=== PATIENT | male | born 1955 | race Caucasian/White ===

== ENCOUNTER 2020-02-07 10:30 | Inpatient (IN) | payer BC ==
[~2020-02-07] VITALS: Ht 170.2 cm; Wt 95.9 kg
[2020-02-07] MEDS ORDERED: normal saline 1000ml 1,000 ML IV ONE (10:40)
[2020-02-07] MEDS ORDERED: aspirin 81mg tab.chew PO ONE (10:40)
[2020-02-07] MEDS ORDERED: diltiazem 5mg/ml 5ml inj. IV ONE (10:40)
[2020-02-07] MEDS ORDERED: magnesium 2GM in 50ml NS 50 ML IV ONE (10:40)
[2020-02-07] MEDS ORDERED: diltiazem-NS 100mg/100ml 100 ML IV SCH (10:45)
[2020-02-07 10:56] LABS: BASOPHILS % (AUTO) 0.3 % (0-1); EOSINOPHILS # (AUTO) 0.1 X10'3 (0-0.9); EOSINOPHILS % (AUTO) 1.2 % (0-6); LYMPHOCYTES # (AUTO) 1.6 X10'3 (1.1-4.8); LYMPHOCYTES % (AUTO) 14.9 % (21-51); MONOCYTES # (AUTO) 0.8 X10'3 (0-0.9); MONOCYTES % (AUTO) 7.5 % (2-12); NEUTROPHILS # (AUTO) 8.1 X10'3 (1.8-7.7); NEUTROPHILS % (AUTO) 76.1 % (42-75); PLATELET COUNT 266 X10'3 (140-440); WHITE BLOOD COUNT 10.6 X10'3 (4.5-11.0)
[2020-02-07 11:08] LABS: HEMATOCRIT 47.1 % (42.0-52.0); HEMOGLOBIN 16.6 g/dl (14.0-17.9); MEAN CORPUSCULAR HEMOGLOBIN 33.4 PG (27.0-31.0); MEAN CORPUSCULAR HGB CONC 35.3 g/dL (33.0-36.5); MEAN CORPUSCULAR VOLUME 94.8 FL (78-98); RED BLOOD COUNT 4.96 X10'6 (4.70-6.10); RED CELL DISTRIBUTION WIDTH 14.1 % (11.5-14.5)
[2020-02-07 11:13] LABS: ALANINE AMINOTRANSFERASE 38 U/L (12-78); ALBUMIN 4.3 G/DL (3.4-5.0); ALBUMIN/GLOBULIN RATIO 1.1 (1.1-1.5); ALKALINE PHOSPHATASE 101 IU/L (46-116); ANION GAP 4 (8-16); ASPARTATE AMINO TRANSFERASE 26 U/L (10-37); BILIRUBIN,TOTAL 0.9 MG/DL (0.1-1.0); BLOOD UREA NITROGEN 18 MG/DL (7-18); BUN/CREATININE RATIO 16.8 (5.4-32.0); CALCIUM 9.4 MG/DL (8.5-10.1); CHLORIDE 95 MMOL/L (99-107); CREATININE 1.07 MG/DL (0.60-1.10); GLUCOSE 119 MG/DL (70-104); POTASSIUM 4.6 MMOL/L (3.5-5.1); SODIUM 129 MMOL/L (135-145); TOTAL CARBON DIOXIDE 29.6 MMOL/L (24-32); TOTAL PROTEIN 8.2 G/DL (6.4-8.2); eGFR 70 ML/MIN
[2020-02-07 11:19] LABS: MAGNESIUM 2.1 MG/DL (1.5-2.4)
[2020-02-07] MEDS ORDERED: LISI-600 PO (11:36)
[2020-02-07] MEDS ORDERED: ATOR80TA PO (11:36)
[2020-02-07] MEDS ORDERED: ASPI-1264 PO (11:36)
[2020-02-07] MEDS ORDERED: TRIA1CAP6 PO (11:36)
[2020-02-07 12:47] LABS: CLARITY,URINE CLEAR (Clear); COLOR,URINE STRAW (Yellow); GLUCOSE, URINE NEGATIVE (Neg); KETONES,URINE NEGATIVE (Neg); LEUKOCYTE ESTERASE ,URINE NEGATIVE (Neg); NITRITES, URINE NEGATIVE (Neg); OCCULT BLOOD,URINE NEGATIVE (Neg); PROTEIN,URINE NEGATIVE (Neg); UROBILINOGEN,URINE 0.2 E.U/dL (0.2-1.0)
[2020-02-07 12:49] LABS: UA COLLECTION TYPE CLN CATCH MIDSTREAM
--- NOTE | 2020-02-07 13:03 | NUR ---
Patient in room ER 7. I have received report from DHAVAL Okeefe and had the opportunity to ask questions and assume patient care.
[2020-02-07] MEDS ORDERED: mag hydrox/Alum hydrox/simeth 30ml oral suspension PO PRN (13:05)
[2020-02-07] MEDS ORDERED: HYDROcodone/acetaminophen 5mg/325mg tablet PO PRN (13:05)
[2020-02-07] MEDS ORDERED: magnesium hydroxide 30ml (MOM) UD suspension PO PRN (13:05)
[2020-02-07] MEDS ORDERED: ondansetron/PF 4mg/2ml inj IV PRN (13:05)
[2020-02-07] MEDS ORDERED: morphine 2 MG/ML inj. syringe IV PRN ×2 (13:05)
[2020-02-07] MEDS ORDERED: acetaminophen 325mg tablet PO PRN ×2 (13:05)
[2020-02-07] MEDS ORDERED: KEN0.1O TOP (13:06)
--- NOTE | 2020-02-07 13:10 | NUR ---
SPOKE WITH DR. CHA,RECEIVED AN ORDER FOR CARDIZEM 30MG Q6 HOURS PO THEN STOP CARDIZEM DRIP AFTER 30 MINUES,ELIQUIZ 5MG BID DOSE NOW.
[2020-02-07] MEDS ORDERED: diltiazem 30mg tablet PO SCH ×3 (13:16→20:00)
[2020-02-07] MEDS: apixaban 2.5mg tablet PO SCH ×2 (13:20→21:46)
--- NOTE | 2020-02-07 13:45 | NUR ---
Pt arrived to unit stable by DHAVAL Okeefe. Oriented to room and call light. VS assessed. Will complete 2RN assessment and physical assessment. VS: 114-99% [id number]
[2020-02-07 13:53] VITALS: BP 124/67
--- NOTE | 2020-02-07 16:38 | NUR ---
Stopped cardizem gtt @1400 New orders per Rusu to increase dose of Cardizem to 60mg BID and a nicotine patch 21.
[2020-02-07 18:00] VITALS: BP 111/62
--- NOTE | 2020-02-07 18:35 | NUR ---
Problems reprioritized. Patient report given, questions answered & plan of care reviewed with DHAVAL Hussein.
--- NOTE | 2020-02-07 18:49 | NUR ---
Patient in room MED 314. I have received report from Kimber PUENTES and had the opportunity to ask questions and assume patient care.
[2020-02-07] MEDS: carvedilol 6.25mg tablet PO SCH (21:46)
[2020-02-07 22:00] VITALS: BP 108/60
[2020-02-07] MEDS: nicotine 21mg patch - 24 hr TD SCH (23:31)
[2020-02-08 02:00] VITALS: BP 111/64
[2020-02-08 05:51] LABS: BASOPHILS % (AUTO) 0.4 % (0-1); EOSINOPHILS # (AUTO) 0.4 X10'3 (0-0.9); EOSINOPHILS % (AUTO) 3.7 % (0-6); HEMATOCRIT 44.8 % (42.0-52.0); HEMOGLOBIN 15.1 g/dl (14.0-17.9); LYMPHOCYTES % (AUTO) 31.7 % (21-51); MEAN CORPUSCULAR HEMOGLOBIN 32.1 PG (27.0-31.0); MEAN CORPUSCULAR HGB CONC 33.7 g/dL (33.0-36.5); MEAN CORPUSCULAR VOLUME 95.2 FL (78-98); MEAN PLATELET VOLUME 8.8 FL (7.4-10.4); MONOCYTES # (AUTO) 0.8 X10'3 (0-0.9); NEUTROPHILS # (AUTO) 5.4 X10'3 (1.8-7.7); NEUTROPHILS % (AUTO) 56.2 % (42-75); PLATELET COUNT 237 X10'3 (140-440); RED CELL DISTRIBUTION WIDTH 14.6 % (11.5-14.5); WHITE BLOOD COUNT 9.6 X10'3 (4.5-11.0)
[2020-02-08 06:00] VITALS: BP 114/67
[2020-02-08 06:36] LABS: ALBUMIN 3.7 G/DL (3.4-5.0); ANION GAP 7 (8-16); BLOOD UREA NITROGEN 22 MG/DL (7-18); BUN/CREATININE RATIO 22.2 (5.4-32.0); CALCIUM 8.8 MG/DL (8.5-10.1); CHLORIDE 99 MMOL/L (99-107); CHOL/HDL RATIO 2.2 (0.00-4.99); CHOLESTEROL 114 MG/DL (0-200); CREATININE 0.99 MG/DL (0.60-1.10); GLUCOSE 98 MG/DL (70-104); HDL CHOLESTEROL 51 MG/DL (35-60); LDL CHOLESTEROL 51 MG/DL (50-100); POTASSIUM 4.1 MMOL/L (3.5-5.1); SODIUM 131 MMOL/L (135-145); TOTAL CARBON DIOXIDE 25.5 MMOL/L (24-32); TRIGLYCERIDES 89 MG/DL (20-135); eGFR 76 ML/MIN
--- NOTE | 2020-02-08 06:53 | NUR ---
Patient in room MED 314. I have received report from Jovita and had the opportunity to ask questions and assume patient care.
--- NOTE | 2020-02-08 06:58 | NUR ---
Problems reprioritized. Patient report given, questions answered & plan of care reviewed with Eugenia PUENTES.
[2020-02-08] MEDS: carvedilol 6.25mg tablet PO SCH (07:58)
[2020-02-08] MEDS ORDERED: nicotine 21mg patch - 24 hr TD SCH (08:00)
[2020-02-08] MEDS: apixaban 2.5mg tablet PO SCH (08:02)
[2020-02-08] MEDS: nicotine 21mg patch - 24 hr TD SCH (08:06)
[2020-02-08] MEDS ORDERED: CARV6.253 PO (11:11)
[2020-02-08] MEDS ORDERED: APIX2.5T PO (11:11)
--- NOTE | 2020-02-08 12:20 | NUR ---
IV's dc'd x2. Rx called in to [facility] at [place]. Instructed pt to take ASA 81mg PO daily. Follow up with Dr Browne and PCP in 1 week. He verbalizes understanding. Discharged home via wc.
== END 2020-02-08 12:00 | disposition home or self-care (01) | DRG 310 ==
LOC: ER 10:31 → ED HOLD 13:02 → MED 3N 13:44
PROVIDERS: ADMIT Internal Medicine; ATTEND Internal Medicine
DX: I48.92 Unspecified atrial flutter (principal); I48.91 Unspecified atrial fibrillation; F17.210 Nicotine dependence, cigarettes, uncomplicated; I10 Essential (primary) hypertension; E78.00 Pure hypercholesterolemia, unspecified; J44.9 Chronic obstructive pulmonary disease, unspecified; E78.5 Hyperlipidemia, unspecified; Z86.73 Personal history of transient ischemic attack (TIA), and cerebral infarction without residual deficits; Z79.899 Other long term (current) drug therapy; Z79.82 Long term (current) use of aspirin
CPT/HCPCS: 36415; 71045; 80048; 80053; 80061; 81003; 83735; 83880; 84443; 84484; 85025; 85610; 87081; 93005; 93306; 93308; 96374; 99285; G0378; J3475; J3490; J7030